=== PATIENT | female | born 1970 | race Caucasian/White ===

== ENCOUNTER → 2016-12-21 | Outpatient (CLI) | payer OTHER | END | disposition home or self-care (01) | LOC: RADMRIMAIN 10:34 | PROVIDERS: ATTEND Internal Medicine Rheumatology | DX: Z53.9 Procedure and treatment not carried out, unspecified reason (principal) ==

== ENCOUNTER → 2017-02-11 | Outpatient (CLI) | payer OTHER ==
[2017-02-11 09:45] LABS: Basophils % (A) 1 %; CHCM 32.6; Eosinophils # (A) 0.2 k/uL (0-0.7); Eosinophils % (A) 2 %; HCT 43.1 % (34.0-46.0); HDW 2.42; HGB 14.1 gm/dL (11.4-16.0); Luc # (Auto) 0.14; Luc % (Auto) 2; Lymphocytes # (A) 1.3 k/uL (1.0-4.8); Lymphocytes % (A) 17 %; MCH 31.2 pg (25.0-35.0); MCHC 32.7 g/dL (31.0-37.0); MCV 95.7 fL (80.0-100.0); Monocytes # (A) 0.5 k/uL (0-1.0); Monocytes % (A) 6 %; Neutrophils # (A) 5.7 k/uL (1.3-7.7); Neutrophils % (A) 73 %; RBC 4.51 m/uL (3.80-5.40); RDW 14.6 % (11.5-15.5); WBC 7.8 k/uL (3.8-10.6); WBC (Perox) 7.93
[2017-02-11 10:56] LABS: ALT 35 U/L (9-52); AST 16 U/L (14-36); Alkaline Phosphatase 72 U/L (38-126); Anion Gap 10 mmol/L; Blood Urea Nitrogen 12 mg/dL (7-17); Calcium 8.9 mg/dL (8.4-10.2); Carbon Dioxide 25 mmol/L (22-30); Chloride 106 mmol/L (98-107); Cholesterol 181 mg/dL (<200); Glucose 104 mg/dL (74-99); HDL Cholesterol 29 mg/dL (40-60); Non-African American GFR(MDRD) >60 (>60 ml/min/1.73 sqM); Potassium 4.6 mmol/L (3.5-5.1); Sodium 141 mmol/L (137-145); Total Bilirubin 0.6 mg/dL (0.2-1.3); Total Protein 6.6 g/dL (6.3-8.2); Triglycerides 106 mg/dL (<150)
[2017-02-11 11:44] LABS: Vitamin B12 298 pg/mL (239-931)
== END | disposition home or self-care (01) ==
LOC: LABWHC1 09:01
PROVIDERS: ATTEND Family Medicine
DX: Z00.01 Encounter for general adult medical examination with abnormal findings (principal); E03.9 Hypothyroidism, unspecified
CPT/HCPCS: 36415; 80053; 80061; 82306; 82607; 84439; 84443; 84481; 85025

== ENCOUNTER → 2017-02-22 | Outpatient (CLI) | payer OTHER ==
--- NOTE | 2017-02-22 10:31 | MM ---
Reason for exam: screening (asymptomatic). Baseline mammogram. Physical Findings: Nurse did not find any significant physical abnormalities on exam. MG Screening Mammo w CAD Bilateral CC and MLO view(s) were taken. The breast tissue is heterogeneously dense. This may lower the sensitivity of mammography. No significant new findings when compared with previous films. These results were verbally communicated with the patient and result sheet given to the patient on 02/22/17. ASSESSMENT: Benign, BI-RAD 2 RECOMMENDATION: Routine screening mammogram of both breasts in 1 year.
== END | disposition home or self-care (01) ==
LOC: RADMAMWWP 09:44
PROVIDERS: ATTEND Family Medicine
DX: Z12.31 Encounter for screening mammogram for malignant neoplasm of breast (principal)

== ENCOUNTER → 2017-06-14 | Outpatient (CLI) | payer OTHER ==
[2017-06-14 11:26] LABS: Basophils % (A) 0 %; CH 29.4; CHCM 31.7; Eosinophils # (A) 0.2 k/uL (0-0.7); Eosinophils % (A) 2 %; HCT 47.1 % (34.0-46.0); HDW 2.32; HGB 14.7 gm/dL (11.4-16.0); Luc # (Auto) 0.11; Luc % (Auto) 1; Lymphocytes # (A) 1.9 k/uL (1.0-4.8); Lymphocytes % (A) 19 %; MCH 29.1 pg (25.0-35.0); MCHC 31.2 g/dL (31.0-37.0); MCV 93.3 fL (80.0-100.0); Mean Platelet Volume 8.5; Monocytes # (A) 0.6 k/uL (0-1.0); Monocytes % (A) 6 %; Neutrophils % (A) 71 %; RBC 5.04 m/uL (3.80-5.40); RDW 15.4 % (11.5-15.5); WBC 9.9 k/uL (3.8-10.6); WBC (Perox) 9.61
[2017-06-14 11:54] LABS: ALT 29 U/L (9-52); AST 17 U/L (14-36); Alkaline Phosphatase 68 U/L (38-126); Anion Gap 11 mmol/L; Blood Urea Nitrogen 12 mg/dL (7-17); Calcium 9.3 mg/dL (8.4-10.2); Carbon Dioxide 23 mmol/L (22-30); Chloride 106 mmol/L (98-107); Glucose 108 mg/dL (74-99); Non-African American GFR(MDRD) >60 (>60 ml/min/1.73 sqM); Potassium 4.7 mmol/L (3.5-5.1); Sodium 140 mmol/L (137-145); Total Bilirubin 0.6 mg/dL (0.2-1.3); Total Protein 7.5 g/dL (6.3-8.2)
== END | disposition home or self-care (01) ==
LOC: LABWHC1 10:47
PROVIDERS: ATTEND Family Medicine
DX: E03.9 Hypothyroidism, unspecified (principal)
CPT/HCPCS: 36415; 80053; 82306; 84439; 84443; 84481; 85025

== ENCOUNTER → 2017-11-02 | Outpatient (CLI) | payer OTHER ==
[2017-11-02 13:17] LABS: T4, Free (Free Thyroxine) 1.15 ng/dL (0.78-2.19)
== END | disposition home or self-care (01) ==
LOC: LABWHC1 12:03
PROVIDERS: ATTEND Internal Medicine Endocrinology, Diabetes & Metabolism
DX: E03.9 Hypothyroidism, unspecified (principal)
CPT/HCPCS: 36415; 84439; 84443

== ENCOUNTER → 2019-01-31 | Outpatient (CLI) | payer OTHER ==
--- NOTE | 2019-01-31 15:13 | XR ---
Cervical spine HISTORY: Trauma and pain 6 views of the cervical spine Is multilevel facet arthropathy. Lateral extension of endplates causes foraminal encroachment at C4-5 , C5-6 on the left greater than right. Cervical vertebral bodies show preserved height. Minimal retro listhesis grade 1 C4-5. Some loss of disc height C4-5 and C5-6. Prevertebral soft tissues are normal. IMPRESSION: Degenerative disc disease and facet arthropathy. No acute fracture or subluxation.
--- NOTE | 2019-01-31 15:20 | XR ---
Left shoulder and bilateral AC joints 3 views of the left shoulder, 2 views of the acromioclavicular joints HISTORY: Trauma and pain Mild arthropathy present at the acromioclavicular joints. There is no acromioclavicular separation ev ident. Left shoulder shows normal bone mineralization, joint spaces and alignment. IMPRESSION: No fracture or dislocation.
--- NOTE | 2019-01-31 15:29 | XR ---
Right wrist HISTORY: Trauma and pain 4 views of the right wrist, comparison to prior 01/11/2014 Bone mineralization is remarkable for probable geode formation in the carpal bones. Alignment and momo nt spaces are maintained. IMPRESSION: No fracture or dislocation is evident.
== END | disposition home or self-care (01) ==
LOC: RADXRMAIN 11:48
PROVIDERS: ATTEND Family Medicine
DX: M50.321 Other cervical disc degeneration at C4-C5 level (principal); M48.8X2 Other specified spondylopathies, cervical region; M25.531 Pain in right wrist; M25.519 Pain in unspecified shoulder
CPT/HCPCS: 72050; 73050

== ENCOUNTER → 2019-03-06 | Outpatient (CLI) | payer OTHER | END | disposition home or self-care (01) | LOC: RADMRIMAIN 16:11 | PROVIDERS: ATTEND Family Medicine | DX: Z53.9 Procedure and treatment not carried out, unspecified reason (principal) ==

== ENCOUNTER → 2019-07-05 | Outpatient (CLI) | payer OTHER ==
--- NOTE | 2019-07-05 15:20 | XR ---
EXAMINATION TYPE: XR hand complete LT DATE OF EXAM: 07/05/2019 CLINICAL HISTORY: Left hand pain after and pain for one week ago. TECHNIQUE: Frontal, lateral and oblique images of the left hand are obtained. COMPARISON: None. FINDINGS: There is no acute fracture/dislocation evident in the left hand. There is fairly monitored minimally throughout the phalanges involving PIP and DIP joints. There is mild to moderate spurring first interphalangeal joint. There is relative sparing of the MCP joints. The overlying soft tissue appears unremarkable. IMPRESSION: There is no acute fracture or dislocation in the left hand.
== END | disposition home or self-care (01) ==
LOC: RADXRMAIN 14:16
PROVIDERS: ATTEND Family Medicine
DX: M79.642 Pain in left hand (principal)

== ENCOUNTER → 2020-07-08 | Outpatient (CLI) | payer OTHER ==
[2020-07-08 10:24] VITALS: BP 155/91; PULSE 83; RESP 16; TEMP 97.9
--- NOTE | 2020-07-08 10:37 | P.PAINCN ---
History of Present Illness - Reason for Consult Consult date: 07/08/20 - History of Present Illness This is 49 years old female with a chronic history of severe neck pain and headache started 1 year ago, but any initiating event patient was diagnosed with right-sided occipital neuralgia and she was referred by Dr. Tay (neurologist ) for right-sided occipital nerve block, patient reported that the headache is severe and intense radiated from the base of the skull is to the top, increased with any neck movement interfere with the quality of life, also patient had generalized body pain and she is diagnosed with rheumatoid arthritis, and she is currently taking Humira, patient's denies any motor or sensory deficit she denies any change in bowel movement or urination Past Medical History Past Medical History: Asthma, COPD, Eye Disorder, Myocardial Infarction (VT), Pneumonia, Rheumatoid Arthritis (RA), Thyroid Disorder Additional Past Medical History / Comment(s): 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, uti-ecoli in 11-23-14, arthritis, sciatica, scoliosis, diverticulitis-in ER 05/20-05/24/15 for acute diverticulitis.glasses -uses mostly to drive, recently dx with RA Last Myocardial Infarction Date:: 2001 History of Any Multi-Drug Resistant Organisms: None Reported Past Surgical History: Section, Orthopedic Surgery, Tubal Ligation Additional Past Surgical History / Comment(s): ECTOPIC , GANGALIAN CYST REMOVED ON LEFT HAND Past Anesthesia/Blood Transfusion Reactions: Previous Problems w/ Anesthesia Additional Past Anesthesia/Blood Transfusion Reaction / Comm: claustraphobia, woke up x3 with ganglion cyst surgery Past Psychological History: No Psychological Hx Reported Smoking Status: Former smoker Past Alcohol Use History: Occasional Additional Past Alcohol Use History / Comment(s): started smoking at age 10, smoking cessation booklet given to p.t 05/24/15, pt had stopped smoking but with holidays started smoking 2 cigarettes a day- was 2 1/2 ppd before using nicotine patch Past Drug Use History: None Reported - Past Family History Father Family Medical History: COPD, Diabetes Mellitus Additional Family Medical History / Comment(s): bowel obstruction- colostomy- then reversed.- hx diverticulitis Mother Family Medical History: COPD, Coronary Artery Disease (CAD), Diabetes Mellitus, Hypertension, Myocardial Infarction (VT), Renal Disease Additional Family Medical History / Comment(s): ibs, cardiac stents, alcoholism Medications and Allergies Home Medications Medication Instructions Recorded Confirmed Type Levothyroxine Sodium [Synthroid] 137 mcg PO DAILY 01/11/14 07/08/20 History Albuterol Inhaler (Mhu) [Ventolin 1 puff INHALATION RT-TID PRN 05/20/15 07/08/20 History Hfa Inhaler (Mhu)] Albuterol Nebulized [Ventolin 2.5 mg INHALATION RT-BID PRN 05/20/15 07/08/20 History Nebulized] Ipratropium [place] [Atrovent Hfa] 2 puff INHALATION RT-QID 02/03/16 07/08/20 History Methotrexate Sodium/Pf 25 mg IM MO 02/03/16 07/08/20 History [Methotrexate 100 mg/4 ml Vial] Mupirocin 2% Oint [Bactroban Oint] 1 applic TOPICAL TID #22 gm 02/03/16 07/08/20 Rx Allergies Allergy/AdvReac Type Severity Reaction Status Date / Time Fish Containing Products Allergy Anaphylaxis Verified 02/03/16 22:37 [Fish] latex Allergy RED Verified 02/03/16 22:37 SKIN-BURNING SENSATION Physical Exam Vitals: Vital Signs Temp Pulse Resp BP Pulse Ox 07/08/20 10:05 97.9 F 83 16 155/91 97 Intake and Output 07/07/20 07/08/20 07/08/20 22:59 06:59 14:59 Other: Weight 142.882 kg Physical Examinations : -Constitutiona : Cooperative , not in acute distress . -HEENT : nech : supple , no Lymphadenopathy , normal thyroid size . : eyes : no ptosis , no icterus, no photophobia . : ENT : normal of hearing , normal oropharynx , no Thrush . - Respiratory : Chest clear to auscultations Bilaterally , no wheezing , no Rhonchi . - Cardiovascula : regular rate and rhythem , S1 , S2 , no S3 , no S4. - Gastrointestina : abdomen soft no tenderness , bowel sounds , no orga nomegally . - Genitourinary : Defferred . - neurologic : Cranial nerve II to XII intact , no focal neurological deffecit . -psychatric : alert , oriented X 3 , appropriate affect , intact judgment and insight . -Lymphatic : no Lymphadenopathy . - musculoskeltal : Cervical Spine motor stregnth in the deltoid and biceps, normal right side , normal Left side motor stregnth biceps and the wrist e xtensors normal right side ,normal left side . motor stregnth in the triceps muscle . normal Right side , normal Left side deep tendon reflexes normal at the biceps , normal at Brachioradialis , normal at triceps. cervical facet loading test= Positive Bilaterally Severe tenderness over the occipital nerve on the right side Lumber spine moter stegnth lower extremities ,thigh and legs 5/5 Right side , 5/5 Left side Generalized joint pain with any active and passive movement of all shoulder joints, knee joints ,hip joints And wrist joints Results Comments: Computed tomography scan of the cervical spine degenerative disc disease computed tomography scan of the head normal Assessment and Plan Plan: Assessment and plan=1-right occipital neuralgia 2-cervical degenerative disc disease. 3-cervicogenic headache. Patient could benefit from right-sided occipital nerve block Time with Patient: Greater than 30 PQRS Measure Charge Sheet Measure #130: Documentation of Current Meds in Medical Chart: Patient's medications documented in chart Measure #226: Tobacco Use: Screen & Cessation Intervention: Pt screened for tobacco use AND intervention given Measure #111: Pneumonia Vaccination: Pneumococcal vaccine NOT administered or previously given Measure #47: Advance Care Plan: Advance care planning discussed & documented, pt chose/unable to give Measure #412: Opioid Treatment Agreement: No documentation of signed opioid treatment agreement Measure #408: Opioid Therapy Follow-up Evaluation: Patient had NO f/u eval minimum every 3 months during opioid therapy Measure #317: Preventitive Care & Scrn High Bld Press & F/U: Pre-hypertensive or hypertensive BP documented, pt will f/u with PCP Measure #128: Body Mass Index (BMI) Screening & Follow-up: BMI documented ABOVE normal parameters - f/u documented Measure #131: Pain Assessment & Follow-up: Pain positive & plan documented, Follow-up scheduled Measure #431: Unhealthy Alcohol Use Preventative Care & Scrn: Patient not iden tified as an unhealthy alcohol user PQRS Narrative: Smoking Status Current every day smoker Blood Pressure 155/91 Pain Intensity [Right Back] 6 Hx Alcohol Use (MH) Yes Home Medications: Ambulatory Orders Levothyroxine Sodium [Synthroid] 137 mcg PO DAILY 01/11/14 Albuterol Inhaler (Mhu) [Ventolin Hfa Inhaler (Mhu)] 1 puff INHALATION RT-TID PRN 05/20/15 Albuterol Nebulized [Ventolin Nebulized] 2.5 mg INHALATION RT-BID PRN 05/20/15 Ipratropium [place] [Atrovent Hfa] 2 puff INHALATION RT-QID 02/03/16 Methotrexate Sodium/Pf [Methotrexate 100 mg/4 ml Vial] 25 mg IM MO 02/03/16 Mupirocin 2% Oint [Bactroban Oint] 1 applic TOPICAL TID #22 gm 02/03/16
== END | disposition home or self-care (01) ==
LOC: PNWHC3 09:56
PROVIDERS: ATTEND Specialist
DX: M54.81 Occipital neuralgia (principal); M50.30 Other cervical disc degeneration, unspecified cervical region; R51.9 Headache, unspecified; Z79.890 Hormone replacement therapy; Z79.51 Long term (current) use of inhaled steroids; Z79.2 Long term (current) use of antibiotics; Z79.899 Other long term (current) drug therapy
CPT/HCPCS: 99211

== ENCOUNTER → 2020-07-23 | Day surgery (SDC) | payer OTHER ==
[2020-07-16 15:28] VITALS: BMI 50.8
[~2020-07-23] MED LIST: DEXAMETHASONE SOD PHOSPHATE 10 MG/ML 1 ML VIAL ONE; IV FLUID CONTINUATION 1,000 ML IV ONE; LACTATED RINGERS 1,000 ML IV ONE; ROPIVACAINE 5MG/ML 20ML VIAL ONE; fentaNYL (PF) 50 MCG/ML 2 ML AMP ONE
[2020-07-23 10:08] VITALS: TEMP 98
[2020-07-23 10:10] LABS: Glucose,Whole Blood 99 mg/dL (75-99)
[2020-07-23 10:50] VITALS: RESP 16
[2020-07-23 11:01] VITALS: BP 154/84; PULSE 75
--- NOTE | 2020-07-23 11:12 | P.OP ---
Date of Procedure: 07/23/20 Preoperative Diagnosis: Occipital neuralgia Postoperative Diagnosis: Right greater occipital neuralgia Procedure(s) Performed: Right greater occipital nerve block Anesthesia: MAC Surgeon: Kal Silvestre Estimated Blood Loss (ml): 0 IV fluids (ml): 100 Urine output (ml): 0 Pathology: none sent Condition: stable Disposition: PACU Description of Procedure: The patient was seen and examined and written informed consent was obtained after explaining the risks, benefits and alternative of the procedure to the patient. The patient was positioned in the sitting position with the head slightly flexed and forehead rested on a pillow. By palpation, the external occipital protuberance and mastoid process were identified and mid point in between was located. One target point was medial to that mid point for greater occipital nerve . The target point for greater occipital nerve was just medial to the occipital artery pulsation. The skin preparation was done with ChloraPrepX2 and sterile technique was observed throughout the procedure. A 25-guage, 1.5 inch needle was placed vertically downward, bony contact was obtained, negative aspi ration was confirmed and one ml solution was injected. The needle was redirected little medially and laterally in a fanning fashion and addition medication was injected after negative aspiration. A total of 6 mL of block solution was injected which containing 10 MG of dexamethasone, and 5 mL of 0.5% ropivacaine mixture.. The needle was removed, needle puncture sites were cleaned and pressure was applied. The patient tolerated the procedure very well. Disposition: Patient taken to the recovery in stable condition. Patient discharged home after meeting the discharge criteria. Patient was given discharge instructions by PACU nurse before going home. Patient can follow up with the pain clinic in 4 weeks duration. Plan - Discharge Summary Discharge Rx Participant: No New Discharge Prescriptions: No Action Levothyroxine Sodium [Synthroid] 137 mcg PO DAILY Albuterol Nebulized [Ventolin Nebulized] 2.5 mg INHALATION RT-BID PRN PRN Reason: Shortness Of Breath Albuterol Inhaler (Mhu) [Ventolin Hfa Inhaler (Mhu)] 1 puff INHALATION RT-TID PRN PRN Reason: Shortness Of Breath Ipratropium [place] [Atrovent Hfa] 2 puff INHALATION RT-QID Gabapentin [Neurontin] 400 mg PO TID Adalimumab [Humira Pen] 40 mg SQ [id number] OXcarbazepine [Trileptal] 150 mg PO BID Montelukast [Singulair] 10 mg PO DAILY DULoxetine HCL [Cymbalta] 30 mg PO DAILY Atorvastatin [Lipitor] 20 mg PO DAILY Discharge Medication List Levothyroxine Sodium [Synthroid] 137 mcg PO DAILY 01/11/14 [History] Albuterol Inhaler (Mhu) [Ventolin Hfa Inhaler (Mhu)] 1 puff INHALATION RT-TID PRN 05/20/15 [History] Albuterol Nebulized [Ventolin Nebulized] 2.5 mg INHALATION RT-BID PRN 05/20/15 [History] Ipratropium [place] [Atrovent Hfa] 2 puff INHALATION RT-QID 02/03/16 [History] Adalimumab [Humira Pen] 40 mg SQ [id number] 07/16/20 [History] Atorvastatin [Lipitor] 20 mg PO DAILY 07/16/20 [History] DULoxetine HCL [Cymbalta] 30 mg PO DAILY 07/16/20 [History] Gabapentin [Neurontin] 400 mg PO TID 07/16/20 [History] Montelukast [Singulair] 10 mg PO DAILY 07/16/20 [History] OXcarbazepine [Trileptal] 150 mg PO BID 07/16/20 [History] Discharge/Stand Alone Forms: Anes Pain/[place] Instructions Discharge Disposition: HOME SELF-CARE
== END | disposition home or self-care (01) ==
LOC: ORPAIN 09:30
DX: M54.81 Occipital neuralgia (principal); Z79.890 Hormone replacement therapy; Z79.899 Other long term (current) drug therapy; Z98.51 Tubal ligation status; Z98.891 History of uterine scar from previous surgery; Z91.040 Latex allergy status; Z91.013 Allergy to seafood
CPT/HCPCS: 81025; 64405; J1100; J3010; J2795

== ENCOUNTER → 2020-08-19 | Outpatient (CLI) | payer OTHER ==
[2020-08-19 15:36] LABS: Basophils # (A) 0.04 X 10*3/uL (0.00-0.10); Basophils % (A) 0.5 %; Eosinophils # (A) 0.42 X 10*3/uL (0.04-0.35); Eosinophils % (A) 4.8 %; HCT 45.4 % (37.2-46.3); HGB 14.4 g/dL (12.0-15.0); Lymphocytes # (A) 2.16 X 10*3/uL (0.90-5.00); Lymphocytes % (A) 24.7 %; MCH 29.8 pg (27.0-32.0); MCHC 31.7 g/dL (32.0-37.0); MCV 93.8 fL (80.0-97.0); Mean Platelet Volume 11.4 fL (9.5-12.2); Monocytes # (A) 0.71 X 10*3/uL (0.20-1.00); Monocytes % (A) 8.1 %; Neutrophils # (A) 5.39 X 10*3/uL (1.80-7.70); Neutrophils % (A) 61.7 %; Platelet Count 323 X 10*3/uL (140-440); RBC 4.84 X 10*6/uL (4.10-5.20); RDW 14.9 % (11.5-14.5); WBC 8.74 X 10*3/uL (4.50-10.00)
[2020-08-19 16:14] LABS: Albumin 4.5 g/dL (3.80-4.90); Albumin/Globulin Ratio 1.8 (1.60-3.17); BUN/Creat Ratio 23.75 Ratio (12.00-20.00); Calcium 9.2 mg/dL (8.7-10.3); Chol/HDL Ratio 4.97; Globulin 2.5 g/dL (1.6-3.3); LDL Cholesterol,Calculated 102.8 mg/dL (0.0-131.0); Non-African American GFR(CKD) 87.2 (60.0-200.0); Potassium 4.6 mmol/L (3.5-5.5); Total Bilirubin 0.3 mg/dL (0.3-1.2); VLDL Calculation 16.2 mg/dL (5.00-40.00)
[2020-08-19 16:22] LABS: T4, Free (Free Thyroxine) 1.1 ng/dL (0.80-1.80)
== END | disposition home or self-care (01) ==
LOC: LABWHC1 10:34
PROVIDERS: ATTEND Internal Medicine Endocrinology, Diabetes & Metabolism
DX: Z00.01 Encounter for general adult medical examination with abnormal findings (principal); E03.9 Hypothyroidism, unspecified
CPT/HCPCS: 36415; 80053; 80061; 82306; 84439; 84443; 84481; 85025

== ENCOUNTER → 2020-08-19 | Outpatient (CLI) | payer OTHER ==
[2020-08-19 10:07] VITALS: PULSE 91; RESP 18; TEMP 97.6
[2020-08-19 10:25] VITALS: BP 145/77
--- NOTE | 2020-08-19 10:26 | P.PN ---
Subjective Progress Note Date: 08/19/20 This is a follow-up visit for this 49 years old female with a chronic history of severe neck pain and headache she is diagnosed with Right occipital neuralgia, cervicogenic headache and cervical degenerative disc disease, recently we did right-sided occipital nerve block which provided the patient with refill for headache for a few weeks , and currently the headache came back and she is having severe right-sided neck pain and headache increases with any neck movement, radiates from the base of the skull to the top, she denies any motor or sensory deficits that she continue to use Neurontin 400 mg 3 times a day and Cymbalta 30 mg daily and Trileptal 150 mg twice a day, patient prescribed by her neurologist, she denies any side effect of the medication Objective - Vital Signs Vital signs: Vital Signs Temp 97.6 F 08/19/20 10:03 Pulse 91 08/19/20 10:03 Resp 18 08/19/20 10:03 BP Pulse Ox 97 08/19/20 10:03 - Exam -Constitutiona : Cooperative , not in acute distress . -HEENT : nech : supple , no Lymphadenopathy , normal thyroid size . : eyes : no ptosis , no icterus, no photo phobia . : ENT : normal of hearing , normal oropharynx , no Thrush . - Respiratory : Chest clear to auscultations Bilaterally , no wheezing , no Rhonchi . - Cardiovascula : regular rate and rhythem , S1 , S2 , no S3 , no S4. - Gastrointestina : abdomen soft no tenderness , bowel sounds , no organomegally . - Genitourinary : Defferred . - neurologic : Cranial nerve II to XII intact , no focal neurological deffecit . -psychatric : alert , oriented X 3 , appropriate affect , intact judgment and insight . -Lymphatic : no Lymphadenopathy . - musculoskeltal : Cervical Spine motor stregnth in the deltoid and biceps, normal right side , normal Left side motor stregnth biceps and the wrist extensors normal right side ,normal left side . motor stregnth in the triceps muscle . normal Right side , normal Left side deep tendon reflexes normal at the biceps , normal at Brachioradialis , normal at triceps. cervical facet loading test= Positive Bilaterally Severe tenderness over the occipital nerve on the right side Lumber spine moter stegnth lower extremities ,thigh and legs 5/5 Right side , 5/5 Left side Generalized joint pain with any active and passive movement of all shoulder joints, knee joints ,hip joints And wrist joints Assessment and Plan Plan: Computed tomography scan of the cervical spine degenerative disc disease computed tomography scan of the head normal Assessment and plan=1-right occipital neuralgia 2-cervical degenerative disc disease. 3-cervicogenic headache. Patient could benefit from repeat right-sided occipital nerve block - PQRS measures = - Patient's medications are documented in the chart. -Tobacco use is positive, and counseling.Given. -Patient's has not received pneumococcal vaccine. -Advanced care planning discussed, patient not eligible. -Opiate contract signed. -Pain positive and follow-up visit/procedure is scheduled. -Patient's blood pressure measured [ 145/77 ] , and documented in the record ,and patient will follow up with the primary care. -Patient's weight was measured and body mass index above the normal limits and counseling was done. and patient instructed to follow-up with the primary care physician. -Patient was not identified as an unhealthy alcohol user Time with Patient: Less than 30
== END | disposition home or self-care (01) ==
LOC: PNWHC3 09:55
PROVIDERS: ATTEND Specialist
DX: M50.30 Other cervical disc degeneration, unspecified cervical region (principal); M54.81 Occipital neuralgia; R51.9 Headache, unspecified; Z79.891 Long term (current) use of opiate analgesic
CPT/HCPCS: 99211

== ENCOUNTER 2020-09-12 12:49 | Day surgery (SDC) | payer OTHER ==
[2020-08-30 15:37] VITALS: BMI 50.8
[~2020-09-12 12:49] MED LIST changes: -DEXAMETHASONE SOD PHOSPHATE 10 MG/ML 1 ML VIAL ONE; -IV FLUID CONTINUATION 1,000 ML IV ONE; -LACTATED RINGERS 1,000 ML IV ONE; +LACTATED RINGERS 1,000 ML IV SCH; -ROPIVACAINE 5MG/ML 20ML VIAL ONE; -fentaNYL (PF) 50 MCG/ML 2 ML AMP ONE
[2020-09-12 13:02] VITALS: TEMP 98.3
[2020-09-12] MEDS ORDERED: ROPIVACAINE 5MG/ML 20ML VIAL ONE (13:05)
[2020-09-12] MEDS ORDERED: DEXAMETHASONE SOD PHOSPHATE 10 MG/ML 1 ML VIAL ONE (13:05)
--- NOTE | 2020-09-12 13:12 | P.PCN ---
Date of Procedure: 09/12/20 Description of Procedure: Pre-operative diagnosis: occipital neuralgia Post Operative Diagnosis: occipital neuralgia Procedure: Right occipital nerve block under ultrasound - Ultrasound used to place needle and avoid vascular structures. Anesthesia: local PROCEDURE INDICATION: The patient with neck pain and headache secondary to occipital neuralgea unresponsive to conservative treatments. PROCEDURE DESCRIPTION / TECHNIQUE: The patient was seen and identified in the preoperative area. Risks, benefits, complications, and alternatives were discussed with the patient, the patient agreed to proceed with the procedure and signed the consent. Vital signs remained stable throughout the procedure. Patient was taken to the OR and time out was completed. The patient was placed in the sitting position on the procedure table. The cervical area and occiptial area were prepped with alcohol swab. Critical pause was taken. Vital signs were closely monitored during the procedure. Conscious sedation was used during the procedure to decrease patients anxiety. Right side: Ultrasound was used and the occipital artery was visualized exiting the skull about 2-3 cm lateral and 2cm inferior to the occipital protuberance On the right side. Then after negative aspiration, a 25g needed was introduced under ultrasound, negative aspiration confirmed and then 3 ml of the block solution containing 2 ml of PF Ropivaciane 0.5% and dexamethasone (total of 10mg) was injected after negative aspiration. Needle was withdrawn intact. Patient tolerated procedure well. No acute complications.
[2020-09-12 13:20] VITALS: RESP 16
[2020-09-12 13:32] VITALS: BP 125/72; PULSE 89
== END 2020-09-12 13:37 | disposition home or self-care (01) ==
LOC: ORPAIN 12:49
PROVIDERS: ATTEND Hospitalist
DX: M54.81 Occipital neuralgia (principal); Z91.040 Latex allergy status; Z91.013 Allergy to seafood
CPT/HCPCS: 64405; J1100; J2795

== ENCOUNTER 2022-09-26 13:00 | Emergency (ER) | payer OTHER ==
[2022-09-26 13:06] VITALS: RESP 20; TEMP 97.6
[2022-09-26] MEDS ORDERED: FUROSEMIDE 10 MG/ML 4 ML VIAL IV STA (13:21)
--- NOTE | 2022-09-26 13:26 | ED ---
General Adult HPI - General Chief complaint: Extremity Problem,Nontraumatic Stated complaint: infected spot on R leg Time Seen by Provider: 09/26/22 13:05 Source: patient, RN notes reviewed, old records reviewed Mode of arrival: ambulatory Limitations: no limitations - History of Present Illness Initial comments: This is a 52-year-old female who presents emergency Department complaining of a open wound on her anterior leg on the right. Patient states his been for 3 weeks. Patient states that she has been on Keflex and has not helped. Patient states she was also on Lasix for a period time but was only given 30 days or so she's been off Lasix for at least a month and both legs swollen up quite a bit. Patient denies any difficulty breathing shortness of breath more than normal. Patient's any recent fever chills or cough. She denies any injury or trauma to the leg. Patient states is no small wound higher up on the anterior leg that is opened but is not draining. Patient states lower wound is draining in the area around it is becoming erythematous. - Related Data Home Medications Medication Instructions Recorded Confirmed Levothyroxine Sodium [Synthroid] 137 mcg PO DAILY 01/11/14 10/23/20 Albuterol Inhaler [Ventolin Hfa 1 puff INHALATION RT-TID PRN 05/20/15 10/23/20 Inhaler] Albuterol Nebulized [Ventolin 2.5 mg INHALATION RT-BID PRN 05/20/15 10/23/20 Nebulized] Ipratropium [place] [Atrovent Hfa] 2 puff INHALATION DIRECTED PRN 02/03/16 10/23/20 Adalimumab [Humira Pen] 40 mg SQ [id number] 07/16/20 10/23/20 Atorvastatin [Lipitor] 20 mg PO HS 07/16/20 10/23/20 DULoxetine HCL [Cymbalta] 30 mg PO HS 07/16/20 10/23/20 Gabapentin [Neurontin] 400 mg PO TID 07/16/20 10/23/20 Montelukast [Singulair] 10 mg PO HS 07/16/20 10/23/20 OXcarbazepine [Trileptal] 150 mg PO BID 07/16/20 10/23/20 Furosemide [Lasix] 20 mg PO DAILY 10/04/20 10/23/20 Potassium Chloride [Klor-Con M10] 10 meq PO DAILY 10/04/20 10/23/20 Previous Rx's Medication Instructions Recorded Furosemide [Lasix] 20 mg PO BID #14 tab 09/26/22 Mupirocin 2% Oint [Bactroban 2% 1 applic TOPICAL TID #22 gm 09/26/22 Oint] Potassium Chloride ER [K-Dur 10] 10 meq PO DAILY #7 tab 09/26/22 clindamycin HCL 300 mg PO TID #30 cap 09/26/22 Allergies Allergy/AdvReac Type Severity Reaction Status Date / Time Fish Containing Products Allergy Anaphylaxis Verified 10/23/20 13:01 [Fish] Iodine and Iodide Containing Allergy Unknown Verified 10/23/20 13:01 Produc latex Allergy RED Verified 10/23/20 13:01 SKIN-BURNING SENSATION Review of Systems ROS Statement: Those systems with pertinent positive or pertinent negative responses have been documented in the HPI. ROS Other: All systems not noted in ROS Statement are negative. Past Medical History Past Medical History: Asthma, COPD, Eye Disorder, Fibromyalgia, Hyperlipidemia, Myocardial Infarction (NE), Musculoskeletal Disorder, Pneumonia, Rheumatoid Arthritis (RA), Sleep Apnea/CPAP/BIPAP, Thyroid Disorder Additional Past Medical History / Comment(s): Radiation to thyroid/Graves Disease, Sciatica, Scoliosis, hx diverticulitis, CPAP use. Last Myocardial Infarction Date:: 2001 History of Any Multi-Drug Resistant Organisms: None Reported Past Surgical History: Section, Orthopedic Surgery, Tubal Ligation Additional Past Surgical History / Comment(s): ECTOPIC , GANGALIAN CYST REMOVEDFROM LEFT HAND. PAIN CLINIC PROCEDURES Past Anesthesia/Blood Transfusion Reactions: Previous Problems w/ Anesthesia Additional Past Anesthesia/Blood Transfusion Reaction / Comment(s): Claustrophobia, woke up X3 with ganglion cyst surgery. Past Psychological History: Depression Smoking Status: Current every day smoker Past Alcohol Use History: Occasional Past Drug Use History: None Reported - Past Family History Father Family Medical History: COPD, Diabetes Mellitus Additional Family Medical History / Comment(s): Bowel obstruction- colostomy- then reversed - hx diverticulitis. Mother Family Medical History: COPD, Coronary Artery Disease (CAD), Diabetes Mellitus, Hypertension, Myocardial Infarction (NE), Renal Disease Additional Family Medical History / Comment(s): IBS, cardiac stents, alcoholism. General Exam - General Exam Comments Initial Comments: GENERAL: Patient is well-developed and well-nourished. Patient is nontoxic and well- hydrated and is in mild distress. ENT: Neck is soft and supple. No significant lymphadenopathy is noted. Oropharynx is clear. Moist mucous membranes. Neck has full range of motion without eliciting any pain. EYES: The sclera were anicteric and conjunctiva were pink and moist. Extraocular movements were intact and pupils were equal round and reactive to light. Eyelids were unremarkable. PULMONARY: Unlabored respirations. Good breath sounds bilaterally. No audible rales rhonchi or wheezing was noted. CARDIOVASCULAR: There is a regular rate and rhythm without any murmurs gallops or rubs. ABDOMEN: Soft and nontender with normal bowel sounds. SKIN: Skin is clear with no lesions or rashes and otherwise unremarkable. NEUROLOGIC: Patient is alert and oriented x3. Cranial nerves II through XII are grossly intact. Motor and sensory are also intact. Normal speech, volume and content. Symmetrical smile. MUSCULOSKELETAL: Right lower leg has a open wound measuring about 4 cm in diameter. The area around it is very erythematous and warm as well. The area is very tender. Both legs are 3+ edema. There is a small ulceration on the proximal aspect of the right leg measuring about 1 cm in diameter there is no erythema around this lesion LYMPHATICS: No significant lymphadenopathy is noted PSYCHIATRIC: Normal psychiatric evaluation. Limitations: no limitations Course Vital Signs 09/26/22 09/26/22 13:03 14:06 Temperature 97.6 F Pulse Rate 89 79 Respiratory 20 20 Rate Blood Pressure 228/84 171/55 O2 Sat by Pulse 95 97 Oximetry Medical Decision Making - Medical Decision Making Was pt. sent in by a medical professional or institution (, PA, MANAGER OPERATING, urgent care, hospital, or senior care...) When possible be specific @ -No Did you speak to anyone other than the patient for history (EMS, parent, family, police, friend...)? What history was obtained from this source @ -No Did you review nursing and triage notes (agree or disagree)? Why? @ -I reviewed and agree with nursing and triage notes Were old charts reviewed (outside hosp., previous admission, EMS record, old EKG, old radiological studies, urgent care reports/EKG's, senior care records)? Report findings @ -No old charts were reviewed Differential Diagnosis (chest pain, altered mental status, abdominal pain women, abdominal pain men, vaginal bleeding, weakness, fever, dyspnea, syncope, he adache, dizziness, GI bleed, back pain, seizure, CVA, palpatations, mental health, musculoskeletal)? @ -Differential Musculoskeletal Muscular strain, contusion, ligament sprain, fracture, arthritis, septic arthritis, bursitis, cellulitis, muscle spasm, nerve compression, DVT, arterial occlusion, herpes zoster, electrolyte abnormality, tumor.... This is not meant to be in all inclusive list EKG interpreted by me (3pts min.). @ -As above X-rays interpreted by me (1pt min.). @ -X-ray of the tib-fib was interpreted by myself and showed no acute abnormality. CT interpreted by me (1pt min.). @ -None done U/S interpreted by me (1pt. min.). @ -None done What testing was considered but not performed or refused? (CT, X-rays, U/S, labs)? Why? @ -None What meds were considered but not given or refused? Why? @ -None Did you discuss the management of the patient with other professionals (professionals i.e. , PA, MANAGER OPERATING, lab, RT, psych nurse, social group worker, optical mechanic apprentice, teacher, weapons officer naval activity, caser up)? Give summary @ -No Was smoking cessation discussed for >3mins.? @ -No Was critical care preformed (if so, how long)? @ -No Were there social determinants of health that impacted care today? How? (Homelessness, low income, unemployed, alcoholism, drug addiction, transportation, low edu. Level, literacy, decrease access to med. care, care home, rehab)? @ -No Was there de-escalation of care discussed even if they declined (Discuss DNR or withdrawal of care, Hospice)? DNR status @ -No What co-morbidities impacted this encounter? (DM, HTN, Smoking, COPD, CAD, Cancer, CVA, ARF, Chemo, Hep., AIDS, mental health diagnosis, sleep apnea, morbid obesity)? @ -None Was patient admitted / discharged? Hospital course, mention meds given and route, prescriptions, significant lab abnormalities, going to OR and other pertinent info. @ -Patient received Rocephin in the emergency department for ulceration on her leg. Patient is not sure showed no subcutaneous air. Patient's white count is only mildly elevated. Patient had no fevers and the redness according to the patient was fairly stable. Patient was also given Lasix in the emergency department. Patient sent home on a different antibiotic as well as Lasix potassium and Bactroban. Undiagnosed new problem with uncertain prognosis? @ -No Drug Therapy requiring intensive monitoring for toxicity (Heparin, Nitro, Insulin, Cardizem)? @ -No Were any procedures done? @ -No Diagnosis/symptom? @ -Cellulitis Acute, or Chronic, or Acute on Chronic? @ -Acute Uncomplicated (without systemic symptoms) or Complicated (systemic symptoms)? @ -Uncomplicated Side effects of treatment? @ -No Exacerbation, Progression, or Severe Exacerbation? @ -No Poses a threat to life or bodily function? How? (Chest pain, USA, NE, pneumonia, PE, COPD, DKA, ARF, appy, cholecystitis, CVA, Diverticulitis, Homicidal, Suicidal, threat to staff... and all critical care pts) @ -No Diagnosis/symptom? @ -Pedal edema Acute, or Chronic, or Acute on Chronic? @ -Acute on chronic Uncomplicated (without systemic symptoms) or Complicated (systemic symptoms)? @ -Uncomplicated Side effects of treatment? @ -none Exacerbation, Progression, or Severe Exacerbation] @ -no Poses a threat to life or bodily function? @ -no - Lab Data Result diagrams: 09/26/22 13:47 09/26/22 13:47 Lab Results 09/26/22 09/26/22 09/26/22 Range/Units 13:47 13:47 13:47 WBC 11.0 H (3.8-10.6) k/uL RBC 4.64 (3.80-5.40) m/uL Hgb 13.7 (11.4-16.0) gm/dL Hct 43.4 (34.0-46.0) % MCV 93.3 (80.0-100.0) fL MCH 29.5 (25.0-35.0) pg MCHC 31.6 (31.0-37.0) g/dL RDW 14.4 (11.5-15.5) % Plt Count 359 (150-450) k/uL MPV 8.2 Neutrophils % 71 % Lymphocytes % 18 % Monocytes % 5 % Eosinophils % 5 % Basophils % 1 % Neutrophils # 7.8 H (1.3-7.7) k/uL Lymphocytes # 2.0 (1.0-4.8) k/uL Monocytes # 0.5 (0-1.0) k/uL Eosinophils # 0.5 (0-0.7) k/uL Basophils # 0.1 (0-0.2) k/uL Sodium 141 (137-145) mmol/L Potassium 4.4 (3.5-5.1) mmol/L Chloride 102 (98-107) mmol/L Carbon Dioxide 28 (22-30) mmol/L Anion Gap 11 mmol/L BUN 11 (7-17) mg/dL Creatinine 0.73 (0.52-1.04) mg/dL Est GFR (CKD-EPI)AfAm >90 (>60 ml/min/1.73 sqM) Est GFR (CKD-EPI)NonAf >90 (>60 ml/min/1.73 sqM) Glucose 198 H (74-99) mg/dL Plasma Lactic Acid Christian 1.8 (0.7-2.0) mmol/L Calcium 9.0 (8.4-10.2) mg/dL Total Bilirubin 0.5 (0.2-1.3) mg/dL AST 28 (14-36) U/L ALT 40 H (4-34) U/L Alkaline Phosphatase 116 (38-126) U/L Total Protein 7.8 (6.3-8.2) g/dL Albumin 4.2 (3.5-5.0) g/dL Disposition Clinical Impression: Cellulitis, Leg ulcer Disposition: HOME SELF-CARE Instructions (If sedation given, give patient instructions): Cellulitis (ED) Prescriptions: Mupirocin 2% Oint [Bactroban 2% Oint] 1 applic TOPICAL TID #22 gm clindamycin HCL 300 mg PO TID #30 cap Potassium Chloride ER [K-Dur 10] 10 meq PO DAILY #7 tab Furosemide [Lasix] 20 mg PO BID #14 tab Is patient prescribed a controlled substance at d/c from ED?: No Referrals: None,Stated [Primary Care Provider] - 1-2 days Time of Disposition: 14:46
[2022-09-26 13:59] LABS: Basophils # (A) 0.1 k/uL (0-0.2); Basophils % (A) 1 %; Eosinophils # (A) 0.5 k/uL (0-0.7); Eosinophils % (A) 5 %; HCT 43.4 % (34.0-46.0); HGB 13.7 gm/dL (11.4-16.0); Lymphocytes % (A) 18 %; MCH 29.5 pg (25.0-35.0); MCHC 31.6 g/dL (31.0-37.0); MCV 93.3 fL (80.0-100.0); Mean Platelet Volume 8.2; Monocytes # (A) 0.5 k/uL (0-1.0); Monocytes % (A) 5 %; Neutrophils # (A) 7.8 k/uL (1.3-7.7); Neutrophils % (A) 71 %; Platelet Count 359 k/uL (150-450); RBC 4.64 m/uL (3.80-5.40); RDW 14.4 % (11.5-15.5)
[2022-09-26] MEDS ORDERED: cefTRIAXone IN SWFI 1,000 MG/10 ML SYRINGE IVP STA (14:06)
[2022-09-26 14:09] LABS: ALT 40 U/L (4-34); AST 28 U/L (14-36); African American GFR (CKD) >90 (>60 ml/min/1.73 sqM); Albumin 4.2 g/dL (3.5-5.0); Alkaline Phosphatase 116 U/L (38-126); Anion Gap 11 mmol/L; Blood Urea Nitrogen 11 mg/dL (7-17); Carbon Dioxide 28 mmol/L (22-30); Chloride 102 mmol/L (98-107); Glucose 198 mg/dL (74-99); Non-African American GFR(CKD) >90 (>60 ml/min/1.73 sqM); Potassium 4.4 mmol/L (3.5-5.1); Sodium 141 mmol/L (137-145); Total Bilirubin 0.5 mg/dL (0.2-1.3); Total Protein 7.8 g/dL (6.3-8.2)
[2022-09-26 14:39] VITALS: BP 171/55; PULSE 79
--- NOTE | 2022-09-26 14:57 | XR ---
EXAMINATION TYPE: XR chest 2V DATE OF EXAM: 09/26/2022 COMPARISON: 06/21/2017 TECHNIQUE: PA and lateral views submitted. HISTORY: Difficulty breathing FINDINGS: There is a coarsened central interstitial pattern. Exam limited by technique. Hypertrophic change of the spine. Heart size mildly enlarged. No pneumothorax. No pleural effusion. IMPRESSION: 1. Patchy perihilar interstitial pneumonitis or pneumonia correlate clinically..
--- NOTE | 2022-09-26 15:01 | XR ---
EXAMINATION TYPE: XR tibia fibula RT DATE OF EXAM: 09/26/2022 COMPARISON: NONE HISTORY: Swelling soft tissue ulcer TECHNIQUE: Two views are submitted. FINDINGS: The osseous structures are intact. The joint spaces are preserved. There is diffuse soft tissue osmar ma. No destructive changes. Calcaneal spurs noted. IMPRESSION: 1. No acute osseous abnormality. Diffuse soft tissue edema correlate for cellulitis. No destructive c hanges seen to suggest osteomyelitis.
== END 2022-09-26 15:00 | disposition home or self-care (01) ==
LOC: EC 13:00
DX: L03.115 Cellulitis of right lower limb (principal); J44.9 Chronic obstructive pulmonary disease, unspecified; I25.2 Old myocardial infarction; G47.30 Sleep apnea, unspecified; E07.9 Disorder of thyroid, unspecified; E78.5 Hyperlipidemia, unspecified; F32.A Depression, unspecified; F17.200 Nicotine dependence, unspecified, uncomplicated; Z79.890 Hormone replacement therapy; Z79.899 Other long term (current) drug therapy; Z91.013 Allergy to seafood; Z91.040 Latex allergy status; Z91.041 Radiographic dye allergy status; Z88.8 Allergy status to other drugs, medicaments and biological substances
CPT/HCPCS: 36415; 80053; 83605; 85025; 87040; 87070; 87205; 73590; 71046; 99283; 96374; 96375; J1940; J0696

== ENCOUNTER 2022-10-09 13:00 | Day surgery (SDC) | payer OTHER ==
[~2022-10-09 13:00] MED LIST changes: +LIDOCAINE 1% (10MG/ML) FOR IV START INTRADERMA PRN
[2022-10-09 14:03] VITALS: RESP 16; TEMP 98
[2022-10-09] MEDS ORDERED: MIDAZOLAM 2 MG/2 ML VIAL ONE (15:43)
[2022-10-09] MEDS ORDERED: KETAMINE 10 MG/ML 20 ML VIAL ONE (15:43)
[2022-10-09] MEDS ORDERED: fentaNYL (PF) 50 MCG/ML 2 ML AMP ONE (15:43)
[2022-10-09] MEDS ORDERED: GLYCOPYRROLATE 0.2 MG/ML 2 ML VIAL ONE (15:43)
[2022-10-09] MEDS ORDERED: PROPOFOL 10 MG/ML 20 ML VIAL IV ONE (15:43)
--- NOTE | 2022-10-09 15:58 | P.PCN ---
Date of Procedure: 10/09/22 Procedure(s) Performed: BRIEF HISTORY: Patient is a 52-year-old pleasant white female scheduled for an elective colonoscopy as a part of screening for colon cancer/positive cologuard PROCEDURE PERFORMED: Colonoscopy with snare polypectomy. PREOPERATIVE DIAGNOSIS: Screening for colon cancer/positive cologuard.. IV sedation per Anesthesia. PROCEDURE: After informed consent was obtained, the patient, was brought into the endoscopy unit. IV sedation was administered by Anesthesia under continuous monitoring. Digital rectal examination was normal. Initially the Olympus CF-160 flexible video colonoscope was then inserted in the rectum, gradually advanced into the cecum without any difficulty. Careful examination was performed as the scope was gradually being withdrawn. Ileocecal valve and the appendiceal orifice were visualized and appeared normal. Prep was excellent. Mucosa of the cecum, ascending colon, appeared normal. The transverse colon there was a 5 mm sessile polyp removed by snare polypectomy. Rest of the transverse colon, descending colon, sigmoid colon, and rectum appeared normal. Scattered sigmoid diverticulosis seen. Retroflexion was performed in the rectum and no lesions were seen. The patient tolerated the procedure well. IMPRESSION: 5 mm transverse colon polyp status post polypectomy Scattered sigmoid diverticulosis Rest of the colon appeared normal RECOMMENDATIONS: Findings of this examination were discussed with the patient as well as a family.. She was advised to follow with the biopsy results and if the biopsies adenoma he can have a repeat colonoscopy in 5 years.
[2022-10-09 16:21] VITALS: BP 149/76; PULSE 86
== END 2022-10-09 16:50 | disposition home or self-care (01) ==
LOC: ORWHC2ENDO 13:00
PROVIDERS: ATTEND Internal Medicine Gastroenterology
DX: D12.3 Benign neoplasm of transverse colon (principal); K57.30 Diverticulosis of large intestine without perforation or abscess without bleeding; I25.2 Old myocardial infarction; E78.5 Hyperlipidemia, unspecified; J45.909 Unspecified asthma, uncomplicated; G47.33 Obstructive sleep apnea (adult) (pediatric); E03.9 Hypothyroidism, unspecified; M79.7 Fibromyalgia; M06.9 Rheumatoid arthritis, unspecified; Z99.89 Dependence on other enabling machines and devices; Z79.899 Other long term (current) drug therapy; Z79.890 Hormone replacement therapy; Z91.013 Allergy to seafood; Z91.041 Radiographic dye allergy status; Z91.040 Latex allergy status
CPT/HCPCS: 45385; 88305; 84703; J2250; J3010; J2704

== ENCOUNTER → 2023-01-01 | Outpatient (CLI) | payer OTHER ==
--- NOTE | 2023-01-01 16:42 | US ---
EXAMINATION TYPE: US venous doppler duplex LE RT DATE OF EXAM: 01/01/2023 4:10 PM COMPARISON: NONE CLINICAL INDICATION: Female, 52 years old with history of R60.0 LOCALIZED EDEMA; non-healing wound ri ght lower leg for 4 months, pain and edema right leg SIDE PERFORMED: right TECHNIQUE: The lower extremity deep venous system is examined utilizing real time linear array sonog alyssa with graded compression, doppler sonography and color-flow sonography. VESSELS IMAGED: Common Femoral Vein Deep Femoral Vein Greater Saphenous Vein * Femoral Vein Popliteal Vein Small Saphenous Vein * Proximal Calf Veins (* superficial vessels) Right Leg: *technical limitations due to patient's body habitus. Patient unable to tolerate compress ions at femoral vein. no evidence of DVT as visualized IMPRESSION: Limited examination due to patient's body habitus. Patient unable to tolerate compression of the femo ral vein. No evidence of deep venous thrombosis of the right lower kidney is visualized. Cannot exclu de renal vein deep venous thrombosis.
== END | disposition home or self-care (01) ==
LOC: RADUSWWP 15:43
PROVIDERS: ATTEND Family Medicine
DX: R60.0 Localized edema (principal)

== ENCOUNTER → 2023-01-12 | Outpatient (CLI) | payer OTHER ==
--- NOTE | 2023-01-12 14:52 | XR ---
EXAMINATION TYPE: XR tibia fibula RT DATE OF EXAM: 01/12/2023 2:39 PM INDICATION: Patient age:Female; 52 years old; Reason for study: S81.801D UNSPECIFIED OPEN WOUND, RIGHT LOWER LEG,; COMPARISON: None TECHNIQUE: The right tibia/fibula was examined in AP and lateral projections. FINDINGS: No evidence of any acute osseous pathology, joint dislocation, or soft tissue swelling is n oted. Calcaneal plantar spurring and Achilles enthesophyte. No evidence for osseous erosion to suggest oste omyelitis. No subcutaneous gas. IMPRESSION: No evidence of acute fracture.
== END | disposition home or self-care (01) ==
LOC: RADXRMAIN 14:18
PROVIDERS: ATTEND Family Medicine
DX: S81.801D Unspecified open wound, right lower leg, subsequent encounter (principal); X58.XXXA Exposure to other specified factors, initial encounter

== ENCOUNTER → 2023-01-23 | Outpatient (CLI) | payer OTHER ==
--- NOTE | 2023-01-23 16:24 | MR ---
EXAMINATION TYPE: MR tib fib RT wo/w con DATE OF EXAM: 01/23/2023 4:10 PM CLINICAL INDICATION:Female, 52 years old with history of R60.0; Rt lower leg wound, anterior mid paiz COMPARISON: X-rays 01/12/2023 TECHNIQUE: Multiplanar, multisequence technique was utilized in order to study and pre-and post contr ast images were obtained. Patient was given, 11 cc Gadavist FINDINGS: There is diffuse streaky subcutaneous changes edema throughout the legs. No organizing fluid collecti on. Muscle volume is equal bilaterally. No soft tissue mass visualized. No abnormal postcontrast enha ncement. Partially visualized left knee demonstrates some susceptibility artifact suspicious for prior surgica l intervention. The right knee is without any susceptibility artifact. There is some mild degeneratio n changes of the knee. The bone marrow signal intensity is within normal limits. Soft tissues are grossly unremarkable. IMPRESSION: Streaky edema involving the legs, right greater than left. No organizing fluid collection. Correlate for cellulitis and other systemic etiologies for edema. No abnormal postcontrast enhancement.
== END | disposition home or self-care (01) ==
LOC: RADMRIMAIN 15:00
PROVIDERS: ATTEND Family Medicine
DX: R60.0 Localized edema (principal)
CPT/HCPCS: 73720; A9585

== ENCOUNTER → 2023-10-12 | Outpatient (CLI) | payer OTHER ==
--- NOTE | 2023-10-12 14:41 | CTL ---
EXAMINATION TYPE: CT Low Dose Lung DATE OF EXAM: 10/12/2023 1:48 PM CLINICAL INDICATION:Female, 53 years old with history of F17.210 NICOTINE DEPENDENCE; personal histor y of nicotine dependence , history of tobacco use. COMPARISON: None. TECHNIQUE: Multiple axial non-contrast scans were obtained from approximately the lung apices through the upper abdomen. Coronal and sagittal reformatted images were obtained. Low dose technique was uti lized. CT DLP: 144.9 mGycm, Automated exposure control for dose reduction was used. CT Contrast: Contrast used: None Oral contrast used: None FINDINGS: ======== Lack of intravenous contrast and low dose technique limits the evaluation of the vascular and soft ti ssue structures. LUNGS: No evidence of pulmonary fibrosis. No evidence of focal consolidation, pneumothorax or pleural effusion. Nodules: RUL: None. RML: None. RLL: None. JANA: None. LLL: Elongated somewhat oval-shaped nodule measuring 21 x 8 mm near the lung base. Series 3 image 200. Not seen on prior imaging in 2015. AIRWAY: Patent and unremarkable. HEART: Size within normal limits. MEDIASTINUM: No gross evidence of adenopathy. VASCULATURE: No aortic aneurysm. MUSCULOSKELETAL: No acute osseous abnormalities SOFT TISSUES/LYMPH NODES: Unremarkable. LOWER NECK: No significant findings. UPPER ABDOMEN: No significant findings. IMPRESSION: Oval-shaped nodular density in the left lung base unclear etiology not seen on prior in 2014. Otherwi se, no clinically significant pulmonary nodules. CT LUNG RAD AND CT CHEST RECOMMENDATION: Lung-Rad 3 Probably Benign: 6 month follow-up LDCT. S Modifier (other clinically significant findings): None Recommend smoking cessation (if current smoker), or continuation of smoking cessation (if prior smoke r). Annual screening for lung cancer with low-dose computed tomography is recommended in adults ages 55 to 77 years who have a 30 pack-year smoking history and currently smoke or have quit within the pa st 15 years. Screening should be discontinued once a person has not smoked for 15 years or develops a health problem that substantially limits life expectancy or the ability or willingness to have curat flynn lung surgery. Lung rads 2021 [email or web address]
== END | disposition home or self-care (01) ==
LOC: RADCTMAIN 13:26
PROVIDERS: ATTEND Internal Medicine Rheumatology
DX: Z12.2 Encounter for screening for malignant neoplasm of respiratory organs (principal); J98.4 Other disorders of lung; F17.210 Nicotine dependence, cigarettes, uncomplicated
CPT/HCPCS: 71271

== ENCOUNTER → 2025-01-10 | Outpatient (CLI) | payer BC ==
[2025-01-10 19:38] LABS: Basophils # (A) 0.07 X 10*3/uL (0.00-0.10); Basophils % (A) 0.5 %; Eosinophils # (A) 0.54 X 10*3/uL (0.04-0.35); Eosinophils % (A) 3.7 %; HCT 45.8 % (37.2-46.3); HGB 14.4 g/dL (12.0-15.0); Lymphocytes # (A) 1.96 X 10*3/uL (0.90-5.00); Lymphocytes % (A) 13.5 %; MCH 29.1 pg (27.0-32.0); MCHC 31.4 g/dL (32.0-37.0); MCV 92.5 FL (80.0-97.0); Mean Platelet Volume 12.4 FL (9.5-12.2); Monocytes # (A) 0.91 X 10*3/uL (0.20-1.00); Monocytes % (A) 6.3 %; NRBC Per 100 WBC 0 X 10*3/uL (0.00-0.01); Neutrophils # (A) 10.91 X 10*3/uL (1.80-7.70); Neutrophils % (A) 75.2 %; Platelet Count 341 X 10*3/uL (140-440); RBC 4.95 X 10*6/uL (4.10-5.20); RDW 15.7 % (11.5-14.5); WBC 14.51 X 10*3/uL (4.50-10.00)
[2025-01-10 19:51] LABS: Hepatitis B Surface Antigen Nonreactive (Nonreactive)
[2025-01-10 19:52] LABS: Protein, Total 7.3 g/dL (6.2-8.2)
[2025-01-10 19:56] LABS: Erythrocyte Sedimentation Rate 80 mm/Hr (0-30)
[2025-01-10 21:27] LABS: Anti-Smith Ab Interp Negative (Negative); Cardiolipin Ab IgG Interp Negative (Negative); Cardiolipin Ab IgM Interp Negative (Negative); Cardiolipin IgA Antibody <2.0 U/mL; Cardiolipin IgM Antibody 4.4 U/mL; Centromere Antibody <0.2 AI; Centromere Antibody Interp Negative (Negative); DNA Double-Stranded Negative (Negative)
[2025-01-10 21:28] LABS: Cyclic Citrull Pep IgG Unit >200.0 U/mL (<=3.9); Cyclic Citrullinated Pep IgG Positive
[2025-01-10 22:31] LABS: Creatine Kinase 76 U/L (26-186); Rheumatoid Factor, Qnt 22 IU/mL (0-15); T4, Free (Free Thyroxine) 1.11 ng/dL (0.80-1.80); Uric Acid 6.9 mg/dL (2.9-7.7)
[2025-01-10 22:33] LABS: ALT 31 U/L (8-44); AST 33 U/L (13-35); Albumin 3.9 g/dL (3.8-4.9); Albumin/Globulin Ratio 1.18 Ratio (1.60-3.17); Alkaline Phosphatase 139 U/L (41-126); Blood Urea Nitrogen 14.4 mg/dL (9.0-27.0); Calcium 9.4 mg/dL (8.7-10.3); Carbon Dioxide 22.1 mmol/L (21.6-31.8); Chloride 101 mmol/L (96-109); Globulin 3.3 g/dL (1.6-3.3); Glucose 349 mg/dL (70-110); Potassium 4.8 mmol/L (3.5-5.5); Sodium 138 mmol/L (135-145); Total Bilirubin <0.2 mg/dL (0.3-1.2); Total Protein 7.2 g/dL (6.2-8.2)
[2025-01-11 09:29] LABS: Free Kappa Lt Chain Qnt, Serum 5.63 mg/dL (0.33-1.94); Free Lambda Lt Chain Qnt, Seru 4.17 mg/dL (0.57-2.63)
[2025-01-11 09:37] LABS: Angiotensin-1 Converting Enz. 44 U/L (8-52)
[2025-01-11 14:04] LABS: APTT 28 Sec(s) (<43); Dilute Russell Viper Venom 33 Sec(s) (<44)
[2025-01-11 15:22] LABS: C-ANCA <1:20 Titer (<1:20)
== END | disposition home or self-care (01) ==
LOC: LABWHC1 12:54
PROVIDERS: ATTEND Internal Medicine Rheumatology
DX: Z11.59 Encounter for screening for other viral diseases (principal); E55.9 Vitamin D deficiency, unspecified; E03.9 Hypothyroidism, unspecified; M06.00 Rheumatoid arthritis without rheumatoid factor, unspecified site; Z72.89 Other problems related to lifestyle
CPT/HCPCS: 36415; 80053; 82164; 82306; 82550; 83516; 83883; 84165; 84439; 84443; 84550; 85025; 85613; 85652; 85730; 86038; 86140; 86147; 86160; 86200; 86225; 86235; 86255; 86334; 86431; 86480; 87340; 87522